=== PATIENT | male | born 1960 | race Caucasian/White ===

== ENCOUNTER 2017-01-01 09:21 | Observation (INO) | payer BC ==
[2017-01-01] VITALS (14 sets, daily range): BP systolic 103–127; BP diastolic 58–91
[~2017-01-01] VITALS: Ht 182.9 cm; Wt 81.6 kg
[~2017-01-01 09:21] MED LIST: PREDNISONE20 MG PO; PROVENTIL HFA6.7 GM IH; SERTRALINE HCL100 MG PO
[2017-01-01 10:23] LABS: HEMATOCRIT 50.2 % (38.0-50.0); MCH 31.2 PG (29.0-34.0); MCHC 34.7 G/DL (30.0-36.0); MCV 90.1 FL (86-99); MEAN PLAT.VOLUME 10.1 uM^3 (9.0-12.4); PLATELET COUNT 290 K/uL (156-360); RBC DIS.WIDTH-CV 13.1 % (11.8-14.6); RED BLOOD COUNT 5.57 M/uL (4.00-5.50); WHITE BLOOD COUNT 17.3 K/uL (4.1-10.2)
[2017-01-01 10:33] LABS: CHLORIDE 102 mEq/L (99-109); POTASSIUM 4.2 mEq/L (3.7-5.4); SODIUM 137 mEq/L (136-147)
[2017-01-01 10:35] LABS: GLUCOSE 99 mg/dL (70-99)
[2017-01-01 10:37] LABS: ANION GAP 12 MEQ/L (2-14); TOTAL BILIRUBIN 0.9 mg/dL (0.0-1.0)
[2017-01-01 10:39] LABS: ALKALINE PHOSPHATASE 74 IU/L (3-129); GFR ESTIMATE (CALCULATED) > 59 mL/min/
[2017-01-01 10:40] LABS: UREA NITROGEN (BUN) 14 mg/dL (9-23)
[2017-01-01 10:45] LABS: TROP-I INTERPRETATION NEGATIVE; TROPONIN-I < 0.01 ng/mL (0.0-0.30)
[2017-01-01 11:17] LABS: BASOPHIL COUNT 0.1 K/uL (0-0.1); EOSINOPHIL (%) 0.9 % (0-5); EOSINOPHIL COUNT 0.2 K/uL (0-0.3); HEMATOLOGY COMMENT 1 SMEAR COMPATIBLE; IMMATURE GRANULOCYTE (%) 0.2 % (0.0-0.7); IMMATURE GRANULOCYTE COUNT 0.4 K/uL; LYMPHOCYTE COUNT 2.2 K/uL (1.0-2.8); MONOCYTE (%) 10.3 % (3-12); MONOCYTE COUNT 1.8 K/uL (0-0.8); NEUTROPHIL (%) 75.4 % (45-76); PLAT.SUFFICIENCY ADEQUATE; USER ID TLW
[2017-01-01 14:27] LABS: INFLUENZA A VIRAL ANTIGEN NEGATIVE; INFLUENZA B VIRAL ANTIGEN NEGATIVE
[2017-01-02 04:15] VITALS: BP 116/69
[2017-01-02 06:46] LABS: ANION GAP 10 MEQ/L (2-14); CHLORIDE 105 MEQ/L (99-109); GFR ESTIMATE (CALCULATED) > 59 mL/min/; POTASSIUM 3.7 MEQ/L (3.7-5.4); SAMPLE HEMOLYSIS CHECK 0; SAMPLE ICTERIC CHECK 0; SAMPLE LIPEMIA CHECK 0; SODIUM 138 MEQ/L (136-147); UREA NITROGEN (BUN) 13 mg/dL (9-23)
[2017-01-02 06:50] LABS: GLUCOSE 178 mg/dL (70-99)
[2017-01-02 07:28] LABS: HEMATOCRIT 42.4 % (38.0-50.0); MCH 32.7 PG (29.0-34.0); MCHC 34.4 G/DL (30.0-36.0); MCV 94.9 FL (86-99); PLATELET COUNT 254 K/uL (156-360); RBC DIS.WIDTH-CV 13.3 % (11.8-14.6); RBC DIS.WIDTH-SD 45.7 % (39-53); RED BLOOD COUNT 4.47 M/uL (4.00-5.50)
[2017-01-02] MEDS ORDERED: CENTRUM SILVER1 EAC3 PO (11:44)
[2017-01-02 20:18] VITALS: BP 123/78
[2017-01-03 00:30] VITALS: BP 126/65
[2017-01-03 03:56] VITALS: BP 130/65
[2017-01-03 07:23] VITALS: BP 142/83
[2017-01-03 11:26] VITALS: BP 137/71
[2017-01-03 12:25] VITALS: BP 141/74
[2017-01-03] MEDS ORDERED: VENTOLIN HFA18 GM IH (13:48)
[2017-01-03] MEDS ORDERED: PREDNISONE20 MG PO (13:48)
[2017-01-03] MEDS ORDERED: ADVAIR 100/501 DISK IH (13:48)
[2017-01-03] MEDS ORDERED: DOXYCYCLINE HY100 M3 PO (13:48)
== END 2017-01-03 16:25 | disposition home or self-care (01) ==
LOC: EME 09:21 → EDOF 13:35 → 5WEST 13:35
PROVIDERS: Emergency Medicine; Internal Medicine
DX: J44.1 Chronic obstructive pulmonary disease with (acute) exacerbation (principal); J44.0 Chronic obstructive pulmonary disease with (acute) lower respiratory infection; J20.9 Acute bronchitis, unspecified; D72.829 Elevated white blood cell count, unspecified; D75.1 Secondary polycythemia; Z87.891 Personal history of nicotine dependence; Z82.49 Family history of ischemic heart disease and other diseases of the circulatory system; Z83.49 Family history of other endocrine, nutritional and metabolic diseases
CPT/HCPCS: 71020; 80048; 80053; 82668 90; 83605; 84484; 85025; 85027; 87040; 87070; 87205; 87502; 93005; 94640 76; 94644; 99202; 99281; 99285; G0378; J0456; J0696; J1956; J2920; J2930; J3475; J7030; J7050